=== PATIENT | female | born 1960 | race Caucasian/White ===

== ENCOUNTER 2019-09-08 09:08 | Outpatient (CLI) | payer BC ==
[2019-09-08 11:12] LABS: Mean Corpuscular HGB CONC 33.4 g/dL (32.0-36.0); Mean Corpuscular Hemoglobin 30.4 pg (27.0-31.0); Mean Platelet Volume 7.1 fL (7.4-10.4); Platelet Count 291 thou/uL (130-400); RBC Distribution Width 10.9 % (11.5-14.5); Red Blood Cell (RBC) Count 3.96 mill/uL (4.20-5.40); White Blood Cell (WBC) Count 8.1 thou/uL (4.8-10.8)
[2019-09-08 11:21] LABS: Prothrombin Time 12.9 SEC (12.0-14.7)
[2019-09-08 11:22] LABS: PTT 30.9 SEC (22.9-36.1)
[2019-09-08 11:38] LABS: Anion Gap 10 mmol/L (10-20); BUN (Urea Nitrogen) 14 mg/dL (9.8-20.1); Calc. Creatinine Clearance 0 mL/min (70-130); Calcium 9.3 mg/dL (7.8-10.44); Carbon Dioxide 27 mmol/L (22-29); Chloride 108 mmol/L (98-107); Estimated GFR-MDRD 76; Glucose 84 mg/dL (70-105); Potassium 4.4 mmol/L (3.5-5.1); Sodium 141 mmol/L (136-145)
== END 2019-09-08 09:09 | disposition home or self-care (01) ==
LOC: LABBT 09:08
PROVIDERS: ATTEND Urology
DX: Z01.812 Encounter for preprocedural laboratory examination (principal); N20.0 Calculus of kidney
CPT/HCPCS: 80048; 81001; 85027; 85610; 85730; 87086

== ENCOUNTER 2019-09-09 10:16 | Day surgery (SDC) | payer BC ==
[2019-09-08 09:44] VITALS: BMI 23.8
[2019-09-09] MEDS ORDERED: PHENYLEPHRINE-NS 100 MCG/ML 10 ML SYRINGE ONE (10:50)
[2019-09-09] MEDS ORDERED: Ondansetron PF 4 MG/2 ML Vial ONE (10:50)
[2019-09-09] MEDS ORDERED: PROPOFOL 200 MG/20 ML VIAL ONE (10:50)
[2019-09-09] MEDS ORDERED: EPHEDRINE 25 MG/5 ML SYRINGE ONE (10:50)
[2019-09-09] MEDS ORDERED: Lidocaine 1% PF 5 ML VIAL ONE (10:50)
[2019-09-09] MEDS ORDERED: Dexamethasone 20 MG/5 ML VIAL ONE (10:50)
[2019-09-09] MEDS ORDERED: cefTRIAXone\\ROCEPHIN 1 GM VIAL ONE (11:26)
[2019-09-09] MEDS ORDERED: Levofloxacin 500 mg/D5W 100 ml Premix Bag ONE (11:26)
[2019-09-09] MEDS ORDERED: Sodium Chloride 0.9% 100 ML ONE (11:27)
[2019-09-09] MEDS ORDERED: Ampicillin 2 GM in Sodium Chloride 0.9% 100 ML IVPB SCH (12:15)
[2019-09-09] MEDS ORDERED: Midazolam HCl 2 mg/2 ml Vial ONE (13:06)
--- NOTE | 2019-09-09 13:23 | RAD ---
KUB: Date: 09/09/2019 HISTORY: Right renal calculus. COMPARISON: None. FINDINGS: A calcification is seen overlying the lower pole of the right kidney measuring 6-7 mm in size. No ure teral calculi. IMPRESSION: Lower pole right renal calculus. POS: TPC
[2019-09-09] MEDS ORDERED: Iothalamate Meglumine 60% 50 ML VIAL FS ONE (13:26)
[2019-09-09] MEDS ORDERED: Fentanyl 100 MCG/2 ML VIAL ONE ×2 (13:31→15:11)
[2019-09-09] MEDS ORDERED: Promethazine HCl 25 MG/ML VIAL ONE (15:28)
[2019-09-09] MEDS ORDERED: Oxybutynin 5 MG TAB ONE (15:49)
[2019-09-09] MEDS ORDERED: Phenazopyridine HCl 97.5 MG TABLET ONE (15:49)
[2019-09-09] MEDS ORDERED: HYDROcodone/Acetaminophen 5/325 mg Tablet ONE (15:58)
--- NOTE | 2019-09-09 16:10 | OP ---
DATE OF PROCEDURE: 09/09/2019 PREOPERATIVE DIAGNOSES: A 58-year-old female with: 1. History of recurrent kidney stone, right proximal ureteral calculi 6 mm at the level of L2-L3. 2. Left punctate renal calculi. 3. History of recurrent kidney stone. POSTOPERATIVE DIAGNOSES: A 58-year-old female with: 1. History of recurrent kidney stone, right proximal ureteral calculi 6 mm at the level of L2-L3. 2. Left punctate renal calculi. 3. History of recurrent kidney stone. PROCEDURES PERFORMED: 1. Cystoscopy. 2. Right retrograde pyelogram. 3. Balloon dilatation of right distal ureter. 4. Flexible ureteroscopy, pyeloscopy, and laser lithotripsy of right proximal ureteral calculi. 5. Diagnostic rigid ureteroscopy. 6. A 6 x 26 double-J ureteral stent with distal tail in situ retrograde pyelogram. ANESTHESIA: LMA general. COMPLICATIONS: None apparent. DISPOSITION: To recovery room in stable condition. INTRAOPERATIVE FINDINGS: Right proximal ureteral calculi, obstructing, impacted. INDICATIONS FOR PROCEDURE AND HISTORY: Ms. Vera is a pleasant 58-year-old female, visiting her daughter at [facility], recently moved from [place] to [place], and does not have a urologist. She is known to have recurrent kidney stones and presented with right proximal ureteral calculi with hydronephrosis. She has been on Keflex and her recent urine culture with me is negative and presents for ureteroscopy and laser lithotripsy. Risks and complications of the procedure were reviewed with her in detail, including, but not limited to: Bleeding, pain, infection, injury, injury to adjacent organs, possible ureteral, renal, and kidney injury, stricture formation, secondary procedure, sepsis, was reviewed with the patient in detail. Options of observation also reviewed. She desired to proceed. DESCRIPTION OF PROCEDURE: After an informed consent was signed, the patient was taken to the operating room and placed in a dorsal lithotomy position with the genital area prepped and draped in the usual surgical sterile fashion. A 21- Malawian cystoscope was utilized for cystoscopy, which demonstrated normal bladder mucosa. The UOs were normal in anatomical location. A 5-Malawian open-ended catheter was utilized for retrograde pyelogram with 1:1 diluted contrast, demonstrating hydronephrosis with an obstructing ureteral calculi in the proximal ureter at the level of L2-L3. This was seen as a filling defect. Stone seen on KUB multigrapher. A 0.035 Sensor wire was able to be passed into the right upper pole; however, we had difficulty passing a second safety wire due to obstructing ureteral stone. A 10-Malawian dual-lumen access sheath was passed to the level of the stone and we gently negotiated a 2nd Sensor wire as a rigid Superstiff wire would not go up with a floppy tip. We were able to pass a 0.035 Sensor wire, and we subsequently transitioned this with an open-ended catheter to a Superstiff wire for working element. With the Sensor wire safety secured, we passed a flexible ureteroscope to the level of the stone under guidewire assist. The stone was visualized in the proximal ureter, it appeared to be adherent to the mucosa, consistent with impacted stone. Using 200 micron laser fiber, we laser lithotripsied the stone off the mucosa, which was challenging given its location. We lasered the stone off the mucosa gently, and using energy of 0.6 joules, fragmented the stone debris. As they were fragmented into smaller debris, they did migrate up into the kidney. Her renal pelvis was capacious as she has hydronephrosis. I surveyed the collecting system, which demonstrated some small punctate stone debris residual. As she does not have an access sheet, with a small caliber ureter that was not stented, I did not basket extract nor was there any obvious stone that required to be retrieved as they were quite small. I surveyed the ureter again, which demonstrated the area of the stone, again demonstrating mucosal edema and changes consistent with an impacted ureteral calculi. I surveyed the ureter and there was small fragmented debris in the proximal ureter. We surveyed the rest of the collecting system and I did not see any stone nidus. I did restage her ureter with the rigid scope as basket would pass more easily. With the rigid ureteroscope, I was able to subsequently pas to the level of the proximal ureter and I did not see any obvious stone debris that was concerning. At this time, we placed a 6 x 26 double-J ureteral stent with distal tail in situ and all safety wire and working wire were removed. Good coil was seen in the kidney and bladder. She was discharged with Omnicef 300 mg one p.o. b.i.d. for 10 days that she previously had low count Enterococcus with subsequent urine negative, Colace #30, tramadol 50 #40 q.6 h. p.r.n., azo p.r.n., Ditropan 10 mg one p.o. daily. She is to obtain a KUB day before appointment on 09/16. If no gross stone debris in the ureter, I will remove her stent subsequently on 09/17 in the morning. Appointment provided. Job ID: [id number] MTDD
--- NOTE | 2019-09-09 17:16 | RAD ---
RETROGRADE PYELOGRAM TWO VIEWS: 09/09/19 HISTORY: Stent placement. Two C-arm views show filling of a nondilated ureter. There appears to be a filling defect within the proximal ureter which corresponds in location to a calculus that was felt to be in the lower pole reg ion of the right kidney but the ureter deviates laterally at this level and this does appear to be wi thin the ureter. A second film shows a wire in place but no film with stent is shown. IMPRESSION: Proximal ureteral calculus. POS: TPC
== END 2019-09-09 17:45 | disposition home or self-care (01) ==
LOC: SDC 10:16
PROVIDERS: ATTEND Urology
PROC: 0TF68ZZ Fragmentation in Right Ureter, Via Natural or Artificial Opening Endoscopic (ICD-10-PCS; principal; 2019-09-09)
PROC: 0T768DZ Dilation of Right Ureter with Intraluminal Device, Via Natural or Artificial Opening Endoscopic (ICD-10-PCS; principal; 2019-09-09)
DX: N13.2 Hydronephrosis with renal and ureteral calculous obstruction (principal); R35.0 Frequency of micturition; Z79.899 Other long term (current) drug therapy
CPT/HCPCS: 74018; 74420; C1758; C1769; J0290; J0696; J1100; J1956; J2001; J2250; J2405; J2550; J2704; J3010; J3490

== ENCOUNTER 2019-09-17 07:28 | Outpatient (CLI) | payer BC ==
--- NOTE | 2019-09-17 07:47 | RAD ---
EXAM: XR Abdomen 1 View/KUB PROVIDED CLINICAL HISTORY: Kidney stones COMPARISON: 09/09/2019 FINDINGS: Interval placement of right ureteral stent, with proximal coil overlying expected location of the rig ht renal pelvis and distal coil overlying expected location of the urinary bladder. Persistent right renal pelvic/proximal ureteral calculus adjacent to the proximal coil. No additional urinary tr act calculi are radiographically apparent. The abdominal bowel gas pattern is nonspecific. IMPRESSION: Interval right ureteral stent placement.
== END 2019-09-17 07:29 | disposition home or self-care (01) ==
LOC: RAD 07:28
PROVIDERS: ATTEND Urology
DX: N20.0 Calculus of kidney (principal); Z96.0 Presence of urogenital implants
CPT/HCPCS: 74018; 80048; 81001; 85027; 85610; 85730; 87086

== ENCOUNTER 2019-09-17 09:48 | Outpatient (CLI) | payer BC ==
[2019-09-17 11:59] LABS: Mean Corpuscular Volume 90.5 fL (78.0-98.0); Mean Platelet Volume 7.2 fL (7.4-10.4); Platelet Count 403 thou/uL (130-400); RBC Distribution Width 10.8 % (11.5-14.5); Red Blood Cell (RBC) Count 4.13 mill/uL (4.20-5.40); White Blood Cell (WBC) Count 5.8 thou/uL (4.8-10.8)
[2019-09-17 12:03] LABS: Prothrombin Time 12.8 SEC (12.0-14.7)
[2019-09-17 12:04] LABS: PTT 30.9 SEC (22.9-36.1)
[2019-09-17 12:14] LABS: Anion Gap 13 mmol/L (10-20); BUN (Urea Nitrogen) 11 mg/dL (9.8-20.1); Calc. Creatinine Clearance 0 mL/min (70-130); Calcium 9.5 mg/dL (7.8-10.44); Carbon Dioxide 24 mmol/L (22-29); Chloride 106 mmol/L (98-107); Estimated GFR-MDRD 61; Glucose 88 mg/dL (70-105); Potassium 3.6 mmol/L (3.5-5.1); Sodium 139 mmol/L (136-145)
== END 2019-09-17 09:49 | disposition home or self-care (01) ==
LOC: LABBT 09:48
PROVIDERS: ATTEND Urology
DX: Z01.812 Encounter for preprocedural laboratory examination (principal); N20.2 Calculus of kidney with calculus of ureter
CPT/HCPCS: 80048; 85027; 85610; 85730

== ENCOUNTER 2019-09-21 06:59 | Day surgery (SDC) | payer BC ==
[2019-09-17 10:09] VITALS: BMI 21.3
[2019-09-21] MEDS ORDERED: Ampicillin 2 GM VIAL ONE (07:29)
[2019-09-21] MEDS ORDERED: Levofloxacin 500 mg/D5W 100 ml Premix Bag ONE (07:29)
[2019-09-21] MEDS ORDERED: Sodium Chloride 0.9% 100 ML ONE (07:29)
--- NOTE | 2019-09-21 07:37 | RAD ---
KUB: 09/21/2019 COMPARISON: 09/17/2019 HISTORY: Preoperative patient FINDINGS: Stable right double-J ureteral stent. Calcification noted adjacent to the proximal curl of the right double-J ureteral stent measuring 4-5 mm suggesting a right renal calculus. The bowel gas pattern appears nonobstructed. IMPRESSION: Stable KUB as detailed above.
[2019-09-21] MEDS ORDERED: Iothalamate Meglumine 60% 50 ML VIAL FS ONE (08:41)
[2019-09-21] MEDS ORDERED: SUGAMMADEX SODIUM 200 MG/2 ML VIAL ONE (08:47)
[2019-09-21] MEDS ORDERED: Fentanyl 100 MCG/2 ML VIAL ONE (08:47)
[2019-09-21] MEDS ORDERED: Midazolam HCl 2 mg/2 ml Vial ONE (08:57)
[2019-09-21] MEDS ORDERED: PROPOFOL 200 MG/20 ML VIAL ONE (09:28)
[2019-09-21] MEDS ORDERED: PHENYLEPHRINE-NS 100 MCG/ML 10 ML SYRINGE ONE (09:28)
[2019-09-21] MEDS ORDERED: Lidocaine 1% PF 5 ML VIAL ONE (09:28)
[2019-09-21] MEDS ORDERED: Ondansetron PF 4 MG/2 ML Vial ONE (09:28)
--- NOTE | 2019-09-21 09:53 | RAD ---
EXAM: XR IVP Retrograde PROVIDED CLINICAL HISTORY: Renal stone COMPARISON: 09/21/2019 8:24 AM KUB FINDINGS: Multiple spot fluoroscopic images of the abdomen demonstrate initial redemonstration of right uretera l stent and right sided adjacent calculus. Subsequent images demonstrate removal of the ureteral stent with opacification of nondilated right renal collecting system with subsequent right ureteral s tent replacement. On the last submitted image, previously described calculus is no longer evident. IMPRESSION: As above.
[2019-09-21] MEDS ORDERED: Oxybutynin 5 MG TAB ONE (10:31)
[2019-09-21] MEDS ORDERED: Phenazopyridine HCl 97.5 MG TABLET ONE (10:32)
[2019-09-21] MEDS ORDERED: HYDROcodone/Acetaminophen 5/325 mg Tablet ONE (11:17)
--- NOTE | 2019-09-21 14:47 | OP ---
DATE OF PROCEDURE: 09/21/2019 PREOPERATIVE DIAGNOSES: 1. A 59-year-old female with history of recurrent kidney stone, right flank pain due to proximal ureteral calculi, status post stent ureteroscopy, with residual stone nidus adjacent to proximal coil of the stent. 2. Left punctate nonobstructing renal calculi. POSTOPERATIVE DIAGNOSES: 1. A 59-year-old female with history of recurrent kidney stone, right flank pain due to proximal ureteral calculi, status post stent ureteroscopy, with residual stone nidus adjacent to proximal coil of the stent. 2. Left punctate nonobstructing renal calculi. PROCEDURES PERFORMED: Cystoscopy, right retrograde, 6 x 26 double-J ureteral stent exchange with Dangler tape to pubis, ureteroscopy, pyeloscopy, laser lithotripsy, basket extraction of stone. ANESTHESIA: LMA. COMPLICATIONS: None apparent. DISPOSITION: To recovery room in stable condition. INDICATIONS FOR PROCEDURE AND HISTORY: Ms. Vera is a 59-year-old female, who presented to the emergency room due to right flank pain. CT demonstrated nonobstructing left punctate renal calculi, right hydronephrosis due to proximal ureteral calculi. She did undergo ureteroscopy, laser lithotripsy, however, I was unable to pass an access sheath. Therefore, we laser lithotripsied the stone, there was some edema at the UPJ, hindering some access into the collecting system. A followup KUB demonstrated persistent stone nidus adjacent to the proximal coil. Therefore, she was advised regarding staged ureteroscopy, laser lithotripsy. Options of stent pull in observation also discussed. I advised the patient to proceed with definitive surgery as I cannot rule out stone nidus that may cause more issues, i.e., obstructing pain. Risks and complications of the procedure were reviewed with her in detail including, but not limited to, bleeding, pain, infection, injury to adjacent organs, urosepsis, stricture formation, possible secondary procedure. Questions answered to her satisfaction and she desired to proceed. DESCRIPTION OF PROCEDURE: After an informed consent was signed, the patient was taken to the operating room, placed in the dorsal lithotomy position with the genital area prepped and draped in the usual surgical sterile fashion. A 21-Maldivian cystoscope was utilized for cystoscopy, which demonstrated normal bladder mucosa. The previous ureteral stent was removed to the level of the meatus and a 0.035 Sensor wire was placed into the right upper pole. A retrograde pyelogram was performed, which demonstrated resolution of corkscrewing at the proximal UPJ junction from previous obstructing stone. Stone was seen in the renal pelvic region. A 10-Maldivian dual-lumen access was able to be passed into the proximal ureter with ease and a second safety wire of 0.35 Super Stiff wire was placed. Using a 28 cm, 10 to 12-Maldivian navigator, we passed a navigator with ease to the level of the proximal ureter and a flexible ureteroscope was advanced to the renal pelvis over the working wire. With the working wire, we surveyed the collecting system. The stone was easily visualized in the right renal pelvis. Using laser lithotripsy, we fragmented this into a small stone debris and was able to basket the stone intact with no ureteral trauma of concern. Stone was sent for chemical analysis. I again resurveyed the collecting system, which demonstrated no evidence of further stone nidus of concern. The ureter was surveyed, which demonstrated no evidence of ureteral mucosa trauma, perforation, or stone nidus. Navigator was then removed and a 6 x 26 double-J ureteral stent was passed without difficulty over the safety wire. Subsequently, the safe wire was removed and the stent was left in situ on Dangler. Bladder was emptied and the Dangler taped to patient's pubic symphysis. She is discharged with Omnicef 300 mg one p.o. daily for 7 days, Colace p.r.n., Azo p.r.n., tramadol #30 p.r.n., and oxybutynin for bladder spasm. She may be traveling out of the area, in which if she is out of area, we will instruct her regarding instructions regarding stent pull on Dangler versus a nurse visit with me on September 27 for stent pull on Dangler. Subsequent followup be about 3 to 4 months with followup imaging of KUB, renal ultrasound, stone metabolic panel. Job ID: [id number]
== END 2019-09-21 12:49 | disposition home or self-care (01) ==
LOC: SDC 06:59
PROVIDERS: ATTEND Urology
PROC: 0T768DZ Dilation of Right Ureter with Intraluminal Device, Via Natural or Artificial Opening Endoscopic (ICD-10-PCS; principal; 2019-09-21)
PROC: 0TF38ZZ Fragmentation in Right Kidney Pelvis, Via Natural or Artificial Opening Endoscopic (ICD-10-PCS; principal; 2019-09-21)
DX: N13.2 Hydronephrosis with renal and ureteral calculous obstruction (principal); Z79.899 Other long term (current) drug therapy
CPT/HCPCS: 74018; 74420; 82365; 88300; C1758; C1769; J0290; J1956; J2001; J2250; J2405; J2704; J3010; J3490